=== PATIENT | female | born 1980 ===

== ENCOUNTER 2017-03-23 13:35 | Emergency (ER) | payer OTHER ==
[2017-03-23 13:48] VITALS: RESP 18
--- NOTE | 2017-03-23 14:38 | C.PDOC ---
History Of Present Illness 37 yr old female presents to the ER for evaluation of superpubic and left adnexal pain for the past 3 days. Patient describes the pain as soreness and discomfort. Patient states it is possible she might be but didn't think so. Patient denies fever, chills, nausea, vomiting, dysuria, hematuria, vaginal discharge, vaginal bleeding, weakness or numbness. Time Seen by Provider: 03/23/17 13:57 Chief Complaint (Nursing): Abdominal Pain History Per: Patient History/Exam Limitations: no limitations Onset/Duration Of Symptoms: Days (3) Past Medical History Reviewed: Historical Data, Nursing Documentation, Vital Signs Vital Signs: Last Vital Signs Temp 98.3 F 03/23/17 13:46 Pulse 95 H 03/23/17 13:46 Resp 18 03/23/17 13:46 BP 115/82 03/23/17 13:46 Pulse Ox 97 03/23/17 16:55 Family History: States: No Known Family Hx - Social History Hx Alcohol Use: No Hx Substance Use: No - Immunization History Hx Tetanus Toxoid Vaccination: No Hx Influenza Vaccination: No Hx Pneumococcal Vaccination: No Review Of Systems Except As Marked, All Systems Reviewed And Found Negative. Constitutional: Negative for: Fever, Chills Gastrointestinal: Positive for: Abdominal Pain (Superpubic and left adnexal pain ). Negative for: Nausea, Vomiting Genitourinary: Negative for: Dysuria, Hematuria, Vaginal Discharge, Vaginal Bleeding Neurological: Negative for: Weakness, Numbness Physical Exam - Physical Exam Appears: Non-toxic, No Acute Distress Skin: Warm, Dry, No Rash Head: Atraumatic, Normacephalic Oral Mucosa: Moist Chest: Symmetrical, No Tenderness Cardiovascular: Rhythm Regular, No Murmur Respiratory: Normal Breath Sounds, No Rales, No Rhonchi, No Wheezing Gastrointestinal/Abdominal: Soft, Tenderness (Mild left adnexal tenderness.), No Guarding, No Rebound Back: Normal Inspection, No CVA Tenderness Extremity: Normal ROM, No Swelling Neurological/Psych: Oriented x3, Normal Speech, Normal Motor ED Course And Treatment - Laboratory Results Result Diagrams: 03/23/17 15:37 03/23/17 16:09 O2 Sat by Pulse Oximetry: 97 (RA) Pulse Ox Interpretation: Normal Progress Note: PLAN: US - Pelvis, CBC, CMP, HCG, Urinalysis & Motrin PO. Disposition Counseled Patient/Family Regarding: Studies Performed, Diagnosis, Need For Followup, Rx Given - Disposition Referrals: [facility] [Outside] Disposition: HOME/ ROUTINE Disposition Time: 16:50 Condition: STABLE Additional Instructions: FOLLOW UP WITH [facility] WITHIN 1 WEEK USE PAIN MEDICATION NEEDED RETURN TO ER IF SYMPTOMS WORSEN Prescriptions: Naproxen 375 mg PO BID PRN #20 tablet PRN Reason: pain Instructions: Ovarian Cyst (ED) Forms: TabbedOut (Pakistani) Print Language: BHUTANESE - POA Present On Arrival: None - Clinical Impression Clinical Impression: Ovarian cyst, left - Scribe Statement The provider has reviewed the documentation as recorded by the Negaribshaquille Jones Provider Attestation: All medical record entries made by the Jean were at my direction and personally dictated by me. I have reviewed the chart and agree that the record accurately reflects my personal performance of the history, physical exam, medical decision making, and the department course for this patient. I have also personally directed, reviewed, and agree with the discharge instructions and disposition.
[2017-03-23 14:45] LABS: URINE BILIRUBIN NEGATIVE (NEGATIVE); URINE COLOR YELLOW (YELLOW); URINE GLUCOSE (UA) NEGATIVE (Normal); URINE KETONE NEGATIVE (NEGATIVE)
[2017-03-23 14:46] LABS: RBC URINE < 1 /hpf (0-3); URINE BLOOD TRACE (NEGATIVE); URINE LEUKOCYTE ESTERASE NEGATIVE Leu/uL (Negative); URINE PROTEIN NEGATIVE (NEGATIVE); URINE UROBILINOGEN 0.2 mg/dL (0.2-1.0); WBC URINE 1 /hpf (0-5)
[2017-03-23 15:45] LABS: BASO % 0.5 % (0.0-2.0); EOS # 0.1 K/uL (0.0-0.7); EOS % 1.1 % (0.0-4.0); HEMATOCRIT 36.4 % (34.0-47.0); LYMPH # 2.2 K/uL (1.0-4.3); LYMPH % 23.5 % (20.0-40.0); MEAN CELL VOLUME 77.2 fL (81.0-99.0); MEAN CORPUSCULAR HEMOGLOBIN 26.2 pg (27.0-31.0); MEAN CORPUSCULAR HGB CONC 33.9 g/dL (33.0-37.0); MEAN PLATELET VOLUME 8.4 fL (7.2-11.7); MONO # 0.6 K/uL (0.0-0.8); MONO % 6.8 % (0.0-10.0); NRBC % 0.1 % (0.0-2.0); WHITE BLOOD COUNT 9.2 K/uL (4.8-10.8)
--- NOTE | 2017-03-23 15:47 | US ---
PROCEDURE: Pelvic ultrasound dated 03/23/2017 HISTORY: PELVIC PAIN COMPARISON: No prior study available for comparison TECHNIQUE: Transabdominal/transvaginal sonographic evaluation of the pelvis performed. FINDINGS: Uterus is anteverted measuring approximately 9.2 x 4.3 x 5.2 cm. No myometrial masses are identified. Endometrium is thickened at 1.6 cm likely due to legal administrative secretary phase of the endometrial cycle in a premenopausal patient. Consider a repeat sonography during the next menstrual cycle shortly following cessation of menses to assess for protestant of normal endometrial thickness. There is a small amount of free fluid within the cul de sac. The right ovary measures 3.6 x 2.4 x 2.8 cm and exhibits arterial flow. Tiny 3 mm calcification is felt to be present. Left ovary measures 3.5 x 3.1 x 2.4 cm and also exhibits arterial flow. . There is a complex left ovarian cyst measuring 1.9 x 1.4 x 2.1 cm. IMPRESSION: Complex left ovarian cyst with small amount of free fluid in the cul de sac. Thickened endometrium at 1.6 cm likely due to legal administrative secretary phase of the endometrial cycle. Recommend followup pelvic ultrasound during the next menstrual cycle shortly following cessation of menses to assess for protestant of normal endometrial thickness and resolution of at aforementioned complex left ovarian cyst as above.
[2017-03-23 16:18] LABS: CHLORIDE 104 mmol/L (98-107)
[2017-03-23 16:19] LABS: POTASSIUM 3.3 mmol/L (3.6-5.2); SODIUM 139 mmol/L (132-148)
[2017-03-23 16:21] LABS: GFR AFRICAN-AMERICAN > 60
[2017-03-23 16:22] LABS: ALB/GLOB RATIO 1.1 (1.0-2.1); ALKALINE PHOSPHATASE 55 U/L (38-126); ALT/SGPT 30 U/L (9-52); AST/SGOT 17 U/L (14-36); BILIRUBIN,TOTAL 0.4 mg/dL (0.2-1.3); BLOOD UREA NITROGEN 14 mg/dL (7-17); CALCIUM 8.5 mg/dl (8.6-10.4); CARBON DIOXIDE 23 mmol/L (22-30); GLUCOSE,RANDOM 77 mg/dL (65-105); TOTAL PROTEIN 6.9 g/dL (6.3-8.3)
[2017-03-23 17:17] VITALS: BP 115/79; PULSE 76; TEMP 98; O2SAT 100
== END 2017-03-23 17:16 | disposition home or self-care (01) ==
LOC: C.ER 13:35
DX: N83.202 Unspecified ovarian cyst, left side (principal)

== ENCOUNTER 2017-11-13 17:35 | Emergency (ER) | payer OTHER ==
[2017-11-13 18:16] VITALS: BMI 32.1
--- NOTE | 2017-11-13 20:19 | US ---
EXAM: US Biophysical Profile Without Non-Stress Testing EXAM DATE/TIME: Exam ordered 11/13/2017 6:18 PM CLINICAL HISTORY: 37 years old, female; Abnormal findings; Abnormal ultrasonic screening; Third; ; Additional info: R/O demise, no fhr detected TECHNIQUE: Real-time ultrasound of the maternal pelvis for biophysical profile evaluation with image documentation. COMPARISON: No relevant prior studies available. FINDINGS: Biometry BPD = [7.99 cm]; Estimated Menstrual Age = [32 w 1 d]; Range = [58F7A-26Q1A HC = [29.39 cm]; Estimated Menstrual Age = [32 w 3 d]; Range = [29W 3D-35W 3D] AC = [25.38 cm]; Estimated Menstrual Age = [29 w 4 d]; Range = [93T0I-54R6H] FL = [6.23 cm]; Estimated Menstrual Age = [32 w 2 d]; Range = [29W 2D-35W 2D] HC/AC Ratio = [1.16] normal 0.96-1.15 EFW = 1663 g plus or -249 g ( 3 lbs. 11 oz. plus or -9 ounces) less than 3% with JOE= 1 cm Placenta: 3 the cervical os Presentation: cephalic Cervix 2.7 cm and closed HR- no cardiac activity detected breathing movements: Present. Score 0/2. Gross body movements: Present. Score 0/2. tone: Present. Score 0/2. Qualitative amniotic fluid volume: Within normal limits. Score 0/2. IMPRESSION: 1. demise. Abnormal biophysical profile ultrasound. Score 0/8.
--- NOTE | 2017-11-13 22:19 | OBHP ---
Datetime: 11/13/2017 18:20 IP Adm Impression: , intrauterine IP Chief Complaint Other: pelvic pressure IP Admit Plan: Observation/Evaluation Admit Comment, IP Provider: 37 y.o. , LMP 02/23/17; per patient, revised BRITNEY 12/13/17, EGA 35w 5d c/o pelvic pressure - first onset 3 days ago, more intense 11/12/17 resulting in patient not report ing to work. Also, reports low back pain - onset one week ago, resolved and returned 3 days ago; asso ciated with tightness around "my belly". Denies urinary frequency or dysuria. Denies fevers, chills. Last felt fetus move last night - no movement at all today. Per patient, "this baby moves only at n ight; ... never during the day", which patient states is usual for this . Denies LOF, VB. Last had sexual intercourse 2 weeks ago. care: Dr. Alves: last visit 11/07/17. Has ultrasou nd appointment 11/14; next scheduled appointment 11/21/17. Denies any issues:- no an emia, DM, HTN, infections; denies UTI or STIs P Ob: x 2: 2003, female, 6lb 7oz. 2010, male, 6lb 12 oz - both delivered at [facility]. Both no complications. 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 Denies STIs., abnormal Jose, fibroi ds. (+) h/o ovarian cysts - 14 years ago PMH: denies PSH: denies NKDA Meds: PNV - QD SocHx: denies tobacco, illcit drug or EtOH use. Lives with FOB and her children. Works as "[employer]" Fam Hx: Mother alive - HTN, DM, RA, cardiac condition. Father alive - DM. Denies any other signif icant fam medical condition P.E.: As above. mildly obese, in NAD. Appears to be in shock. Awake, alert, oriented to time, pers on and place. Cooperative with history and physical Assessment: 37 y.o. P2002, 35w 5d, possible intrauterine demise. Discussed with patient, wi ll obtain official ultrasound for confirmation. Patient is understandably upset. Plan: 1) OB Ultrasound Addendum: OB report - discussed with Dr. Love Razo approximately 2033 hours: IUFD confirmed. Fidnings then discussed with patient and FOB at approximately 2037 hours. Patient counseled re: yani carl. Patient is confused: private Ob provider is covered by a group practice, with admitting darnell crandall at [facility] . Patient advised to call and speak directly with her Ob provider. Ther e is concern re: elevated BP/ possible pre-eclampsia. Denies headaches, blurred vision, nausea, vomi ting epigastric or RUQ pain. Patient does not desire to stay for uterine evacuation. Patient was co unseled that she would have to sign out against medical advice: risks, possible complications includi ng but not limited to seizure, stroke, possible neurologic sequellae, dath were reviewed. Patient exp ressed an understanding and has signed leaving against medical advice form. Same has been witnessed b y R.Angela Ball. patient was provided a copy of written ultrasound report. lastly , patient was told she could return to our unit. Pelvic Type - PN: Not Done Extremities - PN: Normal Abdomen - PN: Normal Back - PN: Normal Breast - PN: Not Done Lungs - PN: Normal Heart - PN: Normal Thyroid - PN: Not Done Neurologic - PN: Normal HEENT - PN: Normal General - PN: Normal Presentation-Admit: Vertex FHR - Baseline A Provider: none detected Contraction Comments Provider: none Comments, ACOG Physical Exam: Abdomen: Gravid. Soft. Non tender. Fundal height 33 cm Bedside sono: cephalic. no movement. no cardiac activity noted Note: bimanual examination was not performed at the time of initial encounter in a demonstration o f empathy. Then patient got dressed as she became more upset Gestation - Est Wks by US: 35w 5d EGA AdmitDate IP: 35.5 IP Chief Complaint: Other Dilatation, Provider: not performed Genitourinary Exam: Not Done DTRs - PN: Normal
[2017-11-14 01:17] VITALS: BP 158/95; PULSE 98
== END 2017-11-13 20:48 | disposition left against medical advice (07) ==
LOC: C.EROB 17:35
DX: O26.893 Other specified pregnancy related conditions, third trimester (principal); R10.2 Pelvic and perineal pain; M54.5 Low back pain; Z3A.35 35 weeks gestation of pregnancy